=== PATIENT | male | born 2000 | race Caucasian/White ===

== ENCOUNTER 2021-11-01 20:47 | Emergency (ER) | payer OTHER | END 2021-11-01 21:38 | disposition home or self-care (01) | LOC: NAV ERS 20:47 | DX: T50.0X1A Poisoning by mineralocorticoids and their antagonists, accidental (unintentional), initial encounter (principal); F84.0 Autistic disorder; Z79.899 Other long term (current) drug therapy | CPT/HCPCS: 99283 ==